=== PATIENT | male | born 1990 | race Caucasian/White ===

== ENCOUNTER 2025-04-03 12:19 | Emergency (ER) | payer OTHER ==
[~2025-04-03] VITALS: Ht 177.8 cm; Wt 104.3 kg
[2025-04-03 12:40] VITALS: BP 135/85; TEMP 98.1
[2025-04-03] MEDS: IV NS 0.9% 1,000 ML BAG IV ONE (14:42)
[2025-04-03 14:50] LABS: AMPHETAMINE, URINE NEGATIVE (NEGATIVE); BARBITURATE, URINE NEGATIVE (NEGATIVE); BENZODIAZEPINE, URINE NEGATIVE (NEGATIVE); CANNABINOID, URINE NEGATIVE (NEGATIVE); COCCAINE, URINE NEGATIVE (NEGATIVE); OPIATE, URINE NEGATIVE (NEGATIVE)
[2025-04-03 15:03] VITALS: O2SAT 99
== END 2025-04-03 15:04 | disposition home or self-care (01) ==
LOC: ER 12:27
DX: R42 Dizziness and giddiness (principal); Z60.2 Problems related to living alone